=== PATIENT | female | born 1955 | race Caucasian/White ===

== ENCOUNTER → 2017-10-12 | Outpatient (CLI) | payer BC ==
[~2017-10-12] MED LIST: ALFA250T3 PO; ANTI1CAP2 PO; ASPI-1 PO; CALC-797 PO; CHOL200023 PO; CHRO400T9 PO; FLAX100030 PO; GLUC-123 PO; IBU200 PO; MULT-1335 PO
--- NOTE | 2017-10-16 14:54 | RADIOLOGY IMAGING REPORT ---
FACILITY: [facility] PATIENT NAME: HENRY GARCIA : [id number] MR: [id number] V: [id number] EXAM DATE: ORDERING PHYSICIAN: DARIN LU TECHNOLOGIST: Lyn Wolf PROCEDURE:BILATERAL DIGITAL SCREENING MAMMOGRAM WITH CAD ASSISTED INTERPRETATION & 3D TOMOSYNTHESIS COMPARISON:Prior mammograms 10/03/16, 08/31/15, 08/21/14. INDICATIONS:SCREENING FINDINGS: Breast parenchyma is predominantly fatty replaced. There are no mammographic findings concerning for malignancy. No significant interval change. DIAGNOSTIC CATEGORY 1--NEGATIVE. RECOMMENDATIONS: ROUTINE MAMMOGRAM AND CLINICAL EVALUATION IN 1 YEAR. IMPRESSION: BIRADS 1: Negative. Dictated by: Rubio Castro on 10/12/2017 at 16:16 Transcribed by: CONNER on 10/12/2017 at 16:23 Approved by: Lisette Stanley M.D. on 10/16/2017 at 14:52 [facility]
== END ==
LOC: MAMO 01:59
PROVIDERS: ATTEND Obstetrics & Gynecology
DX: Z12.31 Encounter for screening mammogram for malignant neoplasm of breast (principal)
CPT/HCPCS: 77063; 77067

== ENCOUNTER → 2018-05-03 | Outpatient (CLI) | payer BC ==
--- NOTE | 2018-05-03 09:43 | EKG ---
FACILITY: [facility] PATIENT NAME: HENRY GARCIA : [id number] MR: [id number] V: [id number] EXAM DATE: ORDERING PHYSICIAN: JON ROSALES TECHNOLOGIST: Test Reason : Blood Pressure : / mmHG Vent. Rate : 058 BPM Atrial Rate : 058 BPM P-R Int : 138 ms QRS Dur : 104 ms QT Int : 410 ms P-R-T Axes : 070 034 045 degrees QTc Int : 402 ms Sinus bradycardia Nonspecific interventricular conduction delay Borderline ECG No previous ECGs available Confirmed by MARK MCGILL ([id number] on 05/03/2018 3:25:32 PM Referred By: Confirmed By:MARK MCGILL
--- NOTE | 2018-05-03 11:42 | RADIOLOGY IMAGING REPORT ---
FACILITY: [facility] [place] PATIENT NAME: Catalina Chirinos : 1955 MR: [id number] V: [id number] EXAM DATE: ORDERING PHYSICIAN: JON ROSALES TECHNOLOGIST: Location: [facility] Patient: Catalina Chirinos : 1955 Visit/Account:[id number] Date of Sevice: 05/03/2018 THYROID HISTORY: Enlarged thyroid COMPARISON: None. FINDINGS: SIZE: Normal. Right lobe: 3.84 x 1.4 x 1.2 cm Left lobe: 4.2 x 1 x 1.1 cm Isthmus: 1.3 mm PARENCHYMA: Mildly heterogeneous bilaterally NODULES: Right lobe: * There is a 2 mm well-circumscribed hypoechoic nodule in the mid right lobe Left lobe: * Is a 9 mm spongiform nodule in the anterior mid left lobe. * In the inferior left lobe there is a 1.2 cm in maximum dimension mildly complex cystic and solid n odule. There are additional small subcentimeter hypoechoic nodules in the left lobe Isthmus: * None discrete. VASCULARITY: Within normal limits. ADDITIONAL FINDINGS: None. IMPRESSION: There is a 1.2 cm mildly complex nodule inferior aspect of the left lobe for which ultrasound-guided fine-needle aspiration is recommended REFERENCE: 2015 [place] [employer] Management Guidelines for Adult Patients with Thyroid Nodules and D ifferentiated Thyroid Cancer: The [place] [employer] Guidelines Task Force on Thyroid Nodul es and Differentiated Thyroid Cancer. SONOGRAPHIC PATTERNS: * Benign: Purely cystic nodules (no solid component); estimated risk of malignancy <1 percent; no bi opsy recommended. * Very Low Suspicion: Spongiform or partially cystic nodules without any of the sonographic features described in low, intermediate, or high suspicion patterns; estimated risk of malignancy <3 percent; consider FNA at > 2 cm (Observation without FNA is also a reasonable option). * Low Suspicion: Isoechoic or hyperechoic solid nodule, or partially cystic nodule with eccentric so lid areas, without microcalcification, irregular margin or ETE (extra-thyroidal extension), or taller than wide shape; estimated risk of malignancy 5-10 percent; recommend FNA at >1.5 cm. * Intermediate Suspicion: Hypoechoic solid nodule with smooth margins without microcalcifications, E TE (extra-thyroidal extension), or taller than wide shape; estimated risk of malignancy 10-20 percent ; recommend FNA at > 1 cm. * High Suspicion: Solid hypoechoic nodule or solid hypoechoic component of a partially cystic nodule with one or more of the following features: irregular margins (infiltrative, microlobulated), microc alcifications, taller than wide shape, rim calcifications with small extrusive soft tissue component, evidence of ETE (extra-thyroidal extension); estimated risk of malignancy >70-90 percent; recommend FNA at > 1 cm. NOTES: * Although a sonographically suspicious subcentimeter thyroid nodule without evidence of extrathyroi christian extension or sonographically suspicious lymph nodes may be observed with close sonographic follow -up rather than pursuing immediate FNA, patient age and preference may modify decision-making. A > 50% interval increase in nodule volume and/or development of new suspicious sonographic features are felt to be a valid reasons for potential re-aspiration of a nodule previously shown to have benig n FNA cytology. Report Dictated By: Lisette Stanley MD at 05/03/2018 11:33 AM Report E-Signed By: Lisette Stanley MD at 05/03/2018 11:38 AM WSN:[email or web address]
== END ==
LOC: US 00:43
PROVIDERS: ATTEND Nurse Practitioner Family
DX: E04.2 Nontoxic multinodular goiter (principal); R00.1 Bradycardia, unspecified
CPT/HCPCS: 76536; 93005

== ENCOUNTER → 2018-05-15 | Outpatient (CLI) | payer BC ==
[2018-05-15 10:22] LABS: INR 1.02
--- NOTE | 2018-05-15 12:52 | RADIOLOGY IMAGING REPORT ---
FACILITY: [facility] PATIENT NAME: Catalina Chirinos : 1955 MR: [id number] V: [id number] EXAM DATE: ORDERING PHYSICIAN: JON ROSALES TECHNOLOGIST: [place] [facility] [place]ina Chirinos : 1955 Visit/Account:[id number] Date of Sevice: 05/15/2018 US BIOPSY LOC/INJ THYROID HISTORY: Thyroid nodule COMPARISON: Ultrasound 05/03/2018. FINDINGS: There are multiple thyroid nodules. Limited ultrasound imaging of the left neck shows a left lower p ole cystic nodule measuring 7 mm. Nodular component on prior ultrasound has the appearance of adjace nt thyroid tissue on today's examination. After discussion with the patient no biopsy was performed. IMPRESSION: 1. The left lower pole thyroid nodule identified on prior ultrasound has a 7 mm cystic focus with di fficulty finding a solid component. No biopsy was therefore performed. Recommend follow-up ultrasou nd in one year. Report Dictated By: Hi Garvey MD at 05/15/2018 12:43 PM Report E-Signed By: Hi Garvey MD at 05/15/2018 12:47 PM WSN:[email or web address]
== END ==
LOC: US 07:12
PROVIDERS: ATTEND Nurse Practitioner Family
DX: E04.1 Nontoxic single thyroid nodule (principal)
CPT/HCPCS: 10005; 36415; 76942; 85610